=== PATIENT | female | born 1965 | race Caucasian/White ===

== ENCOUNTER 2021-02-11 14:08 | Emergency (ER) | payer OTHER, SELFPAY ==
[2021-02-11 14:13] VITALS: BP 133/85; PULSE 71; RESP 18; TEMP 36.6; O2SAT 97; BMI 25.2
[2021-02-11 15:06] VITALS: BP 101/49; PULSE 71; RESP 18; O2SAT 95
[2021-02-11 15:28] VITALS: BP 125/77; PULSE 73; RESP 16; TEMP 36.8; O2SAT 98
--- NOTE | 2021-02-11 15:49 | PC.PHAR ---
PT STATES SHE TAKES CARE OF HER OWN MEDICATIONS-PT STATES SHE HASNT TAKEN AMITRIPTYLINE IN ABOUT 2 WEEKS-PT STATES THE PHARMACY TOLD HER NOT TO TAKE WITH PROZAC BECAUSE OF THE SEROTONIN REACTION
--- NOTE | 2021-02-11 15:57 | W.ED.HA ---
HPI - Headache General: Chief Complaint: Headache Stated Complaint: H/A PROGRESSIVELY GETTING WORSE:SENT BY PCP Time Seen by Provider: 02/11/21 15:31 History of Present Illness: HPI Narrative: 55-year-old female presents emergency room with complaint of headaches progressively worsening over the last several days. She was seen last week by her chiropractor on 2 different occasions and had adjustments that did not help. She is coming bilateral temporal pain as well as occipital pain. She has had some vomiting a couple of days ago. There is no head trauma she is not on any anticoagulants. MD elicited complaint: headache Onset (ago): week(s) Onset description: gradually Location: temporal, occipital and band-like Severity: severe Quality & Timing: squeezing and constant Exacerbating factors: none Relieving factors: nothing Associated symptoms: Deny chest pain, confusion, cough, diaphoresis, eye pain, eye redness, fever(s), lightheadedness, loss of vision, malaise, nausea, neck stiffness, numbness, paresthesias, photophobia, pre-syncope, rash, seizures, short of breath, sound sensitivity, syncope, vomiting or weakness Treatments prior to arrival: none Review of Systems Const: Denies: fever(s), malaise or diaphoresis ENMT: Denies: throat pain, ear or mastoid pain, nasal discharge or nasal congestion Card: Denies: chest pain, lightheadedness, syncope or pre-syncope Resp: Denies: dyspnea, productive cough or non-productive cough GI: Denies: nausea or vomiting : Denies: flank pain, difficulty voiding, dysuria, urinary frequency or urinary urgency Skin/Breast: Denies: rash Neuro: Denies: confusion PFSH ED PFSH: Medical History Constipation DONAL (generalized anxiety disorder) Hypertension Meniere disease New onset of headaches after age 52 Surgical History H/O arthroscopic knee surgery H/O lithotripsy H/O: hysterectomy History of carpal tunnel surgery S/P appendectomy S/P cholecystectomy Family History Sister Cancer Family/Other CAD (coronary artery disease) Denies family history of Diabetes Social History Smoking and tobacco status: never smoked Alcohol intake: current Alcohol intake frequency: holidays/special occasions only Female Reproductive History: Spontaneous abortions: No Physical Exam Const: COMMON NORMALS: no acute distress GENERAL APPEARANCE: cooperative and comfortable ORIENTATION/CONSCIOUSNESS: Yes awake, Yes oriented to person, Yes oriented to place and Yes oriented to time HENMT: COMMON NORMALS: normocephalic, atraumatic and hearing grossly normal bilaterally HEAD & SCALP: normocephalic and atraumatic Eye: DIRECT OPHTHALMOSCOPY: No photophobia Neck/C-Spine: COMMON NORMALS: no JVD Resp: COMMON NORMALS: normal respiratory effort, No retractions, No use of accessory muscles and clear to auscultation bilaterally AUSCULTATION: clear to auscultation bilaterally Cardio: COMMON NORMALS: no JVD, regular rate, regular rhythm and No murmurs present (Cardio) RATE: regular rate RHYTHM: regular rhythm GI: COMMON NORMALS: Soft to palpation and No hepatosplenomegaly present AUSCULTATION: Yes normoactive bowel sounds PALPATION: Yes Soft to palpation, No Tenderness to palpation present (GI), No Guarding due to palpation present (GI) and Yes No hepatosplenomegaly present Extremity: COMMON NORMALS: normal to inspection, capillary refill normal, no clubbing, cyanosis or edema, no calf tenderness and no pedal edema Neuro: SENSORIUM/ORIENTATION: Yes oriented to person, Yes oriented to place and Yes oriented to time Skin: COMMON NORMALS: no rashes or lesions noted GENERAL SKIN EXAM: no rashes or lesions noted Course Vital Signs: Vital signs: Vital Signs Temperature 98.3 F 02/11/21 15:28 Pulse Rate 74 02/11/21 20:14 Respiratory Rate 18 02/11/21 20:14 Blood Pressure 138/73 02/11/21 20:14 Pulse Oximetry 100 02/11/21 20:14 MDM - Headache MDM Narrative: Medical decision making narrative: Labs reviewed on the chart. Neurologically patient fully intact no focal neurologic deficits noted. There is no trauma she is not on any blood thinners. Headache has improved with medications. She describes a tension-like migraine with bilateral frontal symptoms. We will go ahead and discharge her home scheduled for an outpatient MRI. Discharge home [facility] needed along with ibuprofen or Tylenol and follow-up with primary care with results of the MRI return if has further problems. Lab Data: Labs: Lab Results 02/11/21 02/11/21 15:52 15:52 WBC 4.5 10^3/uL 10^3/ uL (4.0-10.0) RBC 4.96 10^6/uL 10^6 /uL (4.1-5.3) Hgb 14.8 g/dL g/dL (11.5-15.3) Hct 42.3 % % (37.0-47.0) MCV 85.3 fl fl (81-99) MCH 29.8 pg pg (28.0-34.0) MCHC 35.0 g/dL g/dL (30.0-36.0) RDW 11.7 % L % (12.1-15.1) Plt Count 237 10^3/cmm 10^3 /cmm (130-400) MPV 9.9 fL fL (7.4-10.4) Neut % (Auto) 64.0 % % Lymph % (Auto) 23.5 % % [place] % (Auto) 8.9 % % Eos % (Auto) 2.7 % % Baso % (Auto) 0.9 % % Neut # (Auto) 2.86 10^3/uL 10^3 /uL (1.8-7.7) Lymph # (Auto) 1.1 10^3/uL 10^3/ uL (0.8-4.8) [place] # (Auto) 0.4 10^3/uL 10^3/ uL (0.2-0.9) Eos # (Auto) 0.1 10^3/uL 10^3/ uL (0.0-0.8) Baso # (Auto) 0.0 10^3/uL 10^3/ uL (0.0-0.1) Nucleated RBC % (a uto) 0 % % Nucleated RBCs # 0.0 /100WBC /100W BC Sodium 140 mmol/L mmol/L (136-145) Potassium 3.4 mmol/L L mmol /L (3.5-5.1) Chloride 105 mmol/L mmol/L (98-107) Carbon Dioxide 25 mmol/L mmol/L (22-29) Anion Gap 13.4 (5-19) BUN 13 mg/dL mg/dL (6-20) Creatinine 0.5 mg/dL mg/dL (0.5-0.9) GFR Calculation 129.1 mL/min mL/m in (90-130) Glucose 117 mg/dL H mg/dL (65-115) Calculated Osmolal ity 291 mOsm/kg mOsm/ kg (285-295) Calcium 9.2 mg/dL mg/dL (8.5-10.5) Total Bilirubin 0.2 mg/dL mg/dL (0.15-1.2) AST 18 U/L U/L (0-32) ALT 37 U/L H U/L (0-33) Alkaline Phosphata se 67 IU/L IU/L (35-105) Total Protein 7.1 g/dL g/dL (6.6-8.7) Albumin 4.2 g/dL g/dL (3.5-5.2) Globulin 2.9 g/dL g/dL (1.3-4.6) Discharge Plan Discharge Patient Disposition: Home Clinical Impression: Headache Condition: Stable Prescriptions: New promethazine 25 mg tablet 25 mg PO Q6H PRN (Reason: headache) Qty: 20 RF: 0 No Action buspirone 5 mg tablet 10 mg PO BID PRN (Reason: anxiety) Qty: 30 RF: 2 Linzess 72 mcg capsule 72 mcg PO QAM 90 Days Qty: 90 RF: 3 rizatriptan [Maxalt] 10 mg tablet 10 mg PO Q2H PRN (Reason: migraine headache) Qty: 10 RF: 2 amitriptyline 25 mg tablet 25 mg PO BEDTIME RF: 0 Adult Multivitamin Gummies 200 mcg Tablet,Chewable 3 tab PO DAILY RF: 0 Advil Dual Action 125-250 mg Tablet 2 - 3 tab PO PRN RF: 0 meloxicam 15 mg tablet 15 mg PO DAILY PRN (Reason: Pain) RF: 0 fluoxetine 20 mg capsule 20 mg PO QAM RF: 0 Benicar HCT 40-25 mg tablet 1 tab PO QAM RF: 0 metoprolol tartrate 25 mg tablet 25 mg PO DAILY PRN (Reason: heart rate) RF: 0 Discharge Orders: Discharge ED (Routine); Ordered 02/11/21 Ordered By: Priyank Potter Referrals: Sahra Maki MD [Primary Care Provider] - Discharge Diet: Usual diet Discharge Activity: Limit activity as instructed Patient Instructions: Opioid Safety Activity Restrictions/Additional Instructions: Avoid stimulants and stressful activities. Case management will call to make arrangements for you to have a MRI of the head. Coding Level of Care Code ED [employer]man for Chg Fwd Exam Comprehensive
[2021-02-11 16:15] LABS: Basophils % 0.9 %; Eosinophils # 0.1 10^3/uL (0.0-0.8); Eosinophils % 2.7 %; Hematocrit 42.3 % (37.0-47.0); Hemoglobin 14.8 g/dL (11.5-15.3); Lymphocytes # 1.1 10^3/uL (0.8-4.8); Lymphocytes % 23.5 %; Mean Corpuscular Hemoglobin 29.8 pg (28.0-34.0); Mean Corpuscular Volume 85.3 fl (81-99); Mean Platelet Volume 9.9 fL (7.4-10.4); Monocytes # 0.4 10^3/uL (0.2-0.9); Monocytes % 8.9 %; Neutrophils # 2.86 10^3/uL (1.8-7.7); Nucleated Red Blood Cells % 0 %; Platelet Count 237 10^3/cmm (130-400); Red Blood Count 4.96 10^6/uL (4.1-5.3); Red Cell Distribution Width 11.7 % (12.1-15.1); White Blood Count 4.5 10^3/uL (4.0-10.0)
[2021-02-11] MEDS: diphenhydrAMINE 50 mg/mL SDV 1mL IVP (16:19)
[2021-02-11] MEDS: ketorolac 30 mg/mL INJ IVP (16:20)
[2021-02-11] MEDS: sodium chloride 0.9% 1,000 ML 999 ML IV (16:20)
[2021-02-11 16:46] LABS: Alanine Aminotransferase 37 U/L (0-33); Albumin Level 4.2 g/dL (3.5-5.2); Alkaline Phosphatase 67 IU/L (35-105); Anion Gap 13.4 (5-19); Aspartate Amino Transferase 18 U/L (0-32); Blood Urea Nitrogen 13 mg/dL (6-20); Calcium 9.2 mg/dL (8.5-10.5); Carbon Dioxide 25 mmol/L (22-29); Chloride 105 mmol/L (98-107); Globulin 2.9 g/dL (1.3-4.6); Glomerular Filtration Rate 129.1 mL/min (90-130); Glucose 117 mg/dL (65-115); Osmolality Calculated 291 mOsm/kg (285-295); Potassium 3.4 mmol/L (3.5-5.1); Sodium 140 mmol/L (136-145); Total Bilirubin 0.2 mg/dL (0.15-1.2); Total Protein 7.1 g/dL (6.6-8.7)
[2021-02-11] MEDS: LORazepam 2 mg/mL INJ 1 mL 1 MG IVP (18:36)
[2021-02-11] MEDS: dihydroergotamine 1 mg/mL Inj IVP (18:36)
[2021-02-11] MEDS: sodium chloride 0.9% (100 ml) 100 ML (18:37)
[2021-02-11] MEDS: valproic acid inj 500 MG in sodium chloride 0.9% 50 ML 55 MG IV (18:37)
[2021-02-11 20:14] VITALS: BP 138/73; PULSE 74; RESP 18; O2SAT 100
--- NOTE | 2021-02-12 12:48 | DCPLANNER ---
manager highway had message to schedule a follow up appointment for patient for an outpatient MRI. manager highway faxed signed order to centralized scheduling, who will call patient with appointment information.
--- NOTE | 2021-03-07 14:40 | DCPLANNER ---
Patient had an MRI scheduled - appointment was cancelled by patient.
== END 2021-02-11 20:17 | disposition home or self-care (01) ==
PROVIDERS: Emergency Provider Family Medicine; PCP Family Medicine
DX: R51.9 Headache, unspecified (principal); I10 Essential (primary) hypertension
CPT/HCPCS: 80053; 85025; 96365; 96366; 96375; 99284; J1110; J1200; J1885; J2060; J7030

== ENCOUNTER → 2021-07-22 15:26 | Outpatient (BNVA) | payer OTHER, SELFPAY | PROVIDERS: PCP Family Medicine; Visit Provider Family Medicine | DX: R53.83 Other fatigue (principal); R63.5 Abnormal weight gain; I10 Essential (primary) hypertension; N95.1 Menopausal and female climacteric states | CPT/HCPCS: 80053; 83001; 83002; 84443; 85025 ==

== ENCOUNTER → 2021-09-05 17:13 | Outpatient (BNVA) | payer OTHER, SELFPAY | PROVIDERS: PCP Family Medicine; Visit Provider Emergency Medicine | DX: M25.561 Pain in right knee (principal) | CPT/HCPCS: 73562 ==

== ENCOUNTER → 2022-07-31 10:48 | Outpatient (BNVA) | payer BC, SELFPAY | PROVIDERS: PCP Family Medicine; Visit Provider Family Medicine | DX: K59.00 Constipation, unspecified (principal); I10 Essential (primary) hypertension; R63.5 Abnormal weight gain; G43.909 Migraine, unspecified, not intractable, without status migrainosus; R41.3 Other amnesia; G43.009 Migraine without aura, not intractable, without status migrainosus; F41.1 Generalized anxiety disorder; M19.90 Unspecified osteoarthritis, unspecified site; K59.04 Chronic idiopathic constipation | CPT/HCPCS: 80053; 84443; 85025; 85651; 86140 ==

== ENCOUNTER → 2022-09-04 09:55 | Outpatient (BNVA) | payer BC, SELFPAY | PROVIDERS: PCP Family Medicine; Referring Provider Family Medicine; Visit Provider Psychiatry & Neurology Neurology | DX: G43.909 Migraine, unspecified, not intractable, without status migrainosus (principal); G45.4 Transient global amnesia; R20.2 Paresthesia of skin | CPT/HCPCS: 81241; 82306; 82607; 83090; 83735; 83921; 85210; 85300; 85303; 85306; 85613; 85730; 86146; 86147; 86160; 86162; 86235; 86255; 86376; 86431; 86617; 86780 ==

== ENCOUNTER 2022-09-18 06:17 | Outpatient (CLI) | payer BC, SELFPAY ==
--- NOTE | 2022-09-18 06:30 | USCV_ITS ---
Ave Cabello Age: 57 Gender: F : 1965 Exam Date: 09/18/2022 06:30 Ordering Phys: Nik Bernabe MD Technologist: JOSE Exam Location: [facility] – [place] Indication: MIGRAINE Risk Factors: Previous Vascular Surgery: Right Brachial BP: / Left Brachial BP: / Right Left Velocity (cm/s) Spectral Plaque Velocity (cm/s) Spectral Plaque Syst/Diast Broadening Syst/Diast Broadening 71.50/ 23.30 Prox CCA 83.10 / 23.30 66.10/ 21.80 Mid CCA 76.50 / 25.70 67.70/ 20.00 Distal CCA 67.80 / 23.90 56.90/ 16.30 Prox ICA 50.30 / 23.70 49.60/ 17.20 Mid ICA 81.60 / 34.20 56.70/ 28.10 Distal ICA 67.20 / 31.90 82.60 ECA 61.30 0.80 ICA/CCA 0.98 Antegrade Vertebral Antegrade 32.00/ 12.30 cm/s 51.30/ 22.50 cm/s Tri Subclavian Tri 75.40 64.60 CONCLUSIONS Right ICA stenosis <50%. Left ICA stenosis <50%. Normal antegrade Doppler flow noted in the right vertebral artery. Normal antegrade Doppler flow noted in the left vertebral artery. Mike Peoples MD (Electronically Signed) Final Date: 18 Sep 2022 17:37 S
== END 2022-09-18 06:18 | disposition home or self-care (01) ==
LOC: RAD 06:18
PROVIDERS: PCP Family Medicine; Visit Provider Psychiatry & Neurology Neurology
DX: G43.909 Migraine, unspecified, not intractable, without status migrainosus (principal)
CPT/HCPCS: 81241; 82306; 82607; 83090; 83735; 83921; 85210; 85300; 85303; 85306; 85613; 85730; 86146; 86147; 86160; 86162; 86235; 86255; 86376; 86431; 86617; 93880

== ENCOUNTER 2024-06-06 09:13 | Emergency (ER) | payer BC, SELFPAY ==
[2024-06-06 09:32] VITALS: BP 136/83; PULSE 61; TEMP 36.6; O2SAT 100
[2024-06-06 09:59] LABS: Basophils % 0.6 %; Eosinophils # 0.1 10^3/uL (0.0-0.8); Eosinophils % 1.1 %; Hematocrit 42.3 % (36-47); Lymphocytes # 1.1 10^3/uL (0.8-4.8); Lymphocytes % 16.2 %; Mean Corpuscular HGB Conc 34.3 g/dL (30-55); Mean Corpuscular Hemoglobin 29.5 pg (27-33); Monocytes # 0.4 10^3/uL (0.2-0.9); Monocytes % 6.1 %; Neutrophils # 5.34 10^3/uL (1.8-7.7); Neutrophils % 75.9 %; Nucleated Red Blood Cells % 0 %; Platelet Count 190 10^3/cmm (157-399); Red Blood Count 4.92 10^6/uL (3.85-5.65); Red Cell Distribution Width 12.5 % (12.1-15.1); White Blood Count 7.04 10^3/uL (3.29-11.43)
[2024-06-06 10:24] LABS: Alanine Aminotransferase 33 U/L (0-33); Albumin Level 4.5 g/dL (3.5-5.2); Alkaline Phosphatase 77 U/L (35-105); Anion Gap 17.8 (5-19); Aspartate Amino Transferase 20 U/L (0-32); Blood Urea Nitrogen 20 mg/dL (6-20); Calcium 9.5 mg/dL (8.5-10.5); Carbon Dioxide 25 mmol/L (22-29); Chloride 100 mmol/L (98-107); Creatinine Clr Calc Pharmacy 63.3874; Globulin 2.7 g/dL (1.3-4.6); Glomerular Filtration Rate 64.5 mL/min (90-130); Glucose 156 mg/dL (65-115); Osmolality Calculated 294 mOsm/kg (285-295); Potassium 3.8 mmol/L (3.5-5.1); Sodium 139 mmol/L (136-145); Total Bilirubin 0.5 mg/dL (0.15-1.2); Total Protein 7.2 g/dL (6.6-8.7)
[2024-06-06 10:40] LABS: Bilirubin Urine Negative (Negative); Blood Urine 1+ (Negative); Glucose Urine UA Negative (Normal); Ketones Urine 1+ (Negative); Leukocyte Esterase Urine Negative (Negative); Nitrate Urine Negative (Negative); Protein Urine Negative (Negative); Specific Gravity, Urine 1.021 (1.005-1.030); Urine Appearance Clear (CLEAR); Urine Color Yellow (Yellow); Urobilinogen Urine 0.2 mg/dL (Negative)
[2024-06-06 10:42] LABS: Add Urine Microscopic? YES; Bacteria Urine None Seen /hpf; Hyaline Casts Urine 7.85 /lpf
[2024-06-06 11:35] VITALS: BP 123/74; PULSE 71; O2SAT 98
--- NOTE | 2024-06-06 11:36 | ED_ITS ---
HPI - Female Genitourinary 2 General: Chief complaint: Urogenital-Female Stated complaint: low back pain possible kidney stones per pt Time Seen by Provider: 06/06/24 11:36 History of Present Illness: 59-year-old female presents emergency ro om complaining of left flank pain that began this morning wraps up into her abdomen. She has a little bit of dysuria frequency. No hematuria she has a history of renal stones states this feels like stone she has had in the past. Associated symptoms: Deny abdominal pain Related Data Home Medications ?Medication ?Instructions ?Recorded ?Confirmed multivitamin with minerals-folic 3 tab PO DAILY 06/06/24 acid 200 mcg chewable tablet (Adult Multivitamin Gummies) metoprolol tartrate 25 mg tablet 25 mg PO DAILY PRN he art rate 06/06/24 06/06/24 tirzepatide 12.5 mg/0.5 mL 12.5 mg SUBCUT Q7D 06/06/24 06/06/24 subcutaneous pen injector (Vidal) Previous Rx's ?Medication ?Instructions ?Recorded olmesartan 40 1 tab PO QAM 90 days #90 tab s 07/31/22 mg-hydrochlorothiazide 25 mg tablet (Benicar HCT) eletriptan 20 mg tablet (Relpax) 20 mg PO Q2H PRN migr zoila headache 09/04/22 #30 tabs ciprofloxacin HCl 500 mg tablet 500 mg PO BID #14 tabs 06/06/24 (Cipro) hydrocodone 5 mg-acetaminophen 325 1 tab PO Q6H PRN pa in #10 tabs 06/06/24 mg tablet Allergies Allergy/AdvReac Type Severity Reaction Status Date / Time codeine AdvReac Mild ADR-VOMITIN Verified 06/06/24 09:36 G erythromycin base AdvReac Mild ADR-LETHARG Verified 06/06/24 09:36 IC morphine AdvReac ADR-ANXIETY Verified 06/06/24 09:36 Review of Systems 2 Const: Denies: fever(s) or chills Card: Denies: chest pain Resp: Denies: dyspnea GI: Denies: abdominal pain : Reports: flank pain (Right); Denies: dysuria, urinary frequency or urinary urgency Musc: Denies: neck pain or back pain Skin/Breast: Denies: rash PFSH ED 2 PFSH: Medical History Constipation DONAL (generalized anxiety disorder) Hypertension Memory deficit Meniere disease New onset of headaches after age 52 Surgical History H/O arthroscopic knee surgery H/O lithotripsy H/O: hysterectomy History of carpal tunnel surgery S/P appendectomy S/P cholecystectomy Family History Sister Cancer Family/Other CAD (coronary artery disease) Denies family history of Diabetes Social History Smoking and tobacco/nicotine status: never used tobacco/nicotine Alcohol intake: current Alcohol intake frequency: holidays/special occasions only Substance/Drug Use: never Female Reproductive History: Spontaneous abortions: No Physical Exam 2 Const: COMMON NORMALS: no acute distress GENERAL APPEARANCE: cooperative and comfortable ORIENTATION/CONSCIOUSNESS: Yes awake, Yes oriented to person, Yes oriented to place and Yes oriented to time HENMT: COMMON NORMALS: normocephalic, atraumatic and hearing grossly normal bilaterally HEAD & SCALP: normocephalic and atraumatic Resp: COMMON NORMALS: normal respiratory effort, No retractions, No use of accessory muscles and clear to auscultation bilaterally AUSCULTATION: clear to auscultation bilaterally Cardio: COMMON NORMALS: regular rate, regular rhythm and No murmurs present (Cardio) RATE: regular rate RHYTHM: regular rhythm GI: COMMON NORMALS: Soft to palpation and No hepatosplenomegaly present A USCULTATION: Yes normoactive bowel sounds PALPATION: Yes Soft to palpation, No Tenderness to palpation present (GI), No Guarding due to palpation present (GI) and Yes No hepatosplenomegaly present : BLADDER/KIDNEY EXAM: Yes CVA tenderness Back/Pelvis: GENERAL BACK: Yes CVA tenderness CVA tenderness: right Extremity: COMMON NORMALS: normal to inspection, capillary refill normal, no clubbing, cyanosis or edema, no calf tenderness and no pedal edema Neuro: SENSORIUM/ORIENTATION: Yes oriented to person, Yes oriented to place and Yes oriented to time Skin: COMMON NORMALS: no rashes or lesions noted GENERAL SKIN EXAM: no rashes or lesions noted Course 2 Vital Signs: Vital signs: Vital Signs Temperature 97.8 F 06/06/24 09:32 Pulse Rate 76 06/06/24 13:03 Blood Pressure 109/75 06/06/24 13:03 Pulse Oximetry 96 06/06/24 13:03 Oxygen Delivery Me thod Room Air 06/06/24 12:34 MDM - Female Medical Decision Making No signs of nephrolithiasis on the CT. Patient does have some perinephric stranding suggestive of pyelourine shows white blood cells but there is some squamous cells involved as well no leukocytosis. Will start on Cipro 500 Clem hydrocodone for the flank pain however follow-up as needed. Medical Records I reviewed the patient's medical records. Lab Data I reviewed the patient's lab results. 06/06/24 09:51 06/06/24 09:51 Radiology Impressions Abdomen/Pelvis CT 06/06/24 11:37 IMPRESSION: 1. Inflammatory stranding and induration about the RIGHT renal pelvis with RIGHT ureterectasis. No visualized obstructing renal or ureteral calculi. Recommend correlation for RIGHT pyelonephritis and recently passed calculus. 2. Prior appendectomy. 3. Mild hepatomegaly with diffuse fatty infiltration of the liver. 4. No other acute findings. 5. Prior cholecystectomy. Laboratory Results WBC 7.04 10^3/uL (3.29-11.43) 06/06/24 09:51 RBC 4.92 10^6/uL (3.85-5.65) 06/06/24 09:51 Hgb 14.50 g/dL (11.27-16.99) 06/06/24 09:51 Hct 42.3 % (36-47) 06/06/24 09:51 MCV 86.0 fl (85-98) 06/06/24 09:51 MCH 29.5 pg (27-33) 06/06/24 09:51 MCHC 34.3 g/dL (30-55) 06/06/24 09:51 RDW 12.5 % (12.1-15.1) 06/06/24 09:51 Plt Count 190 10^3/cmm (157-399) 06/06/24 09:51 MPV 10.0 fL (7.4-10.4) 06/06/24 09:51 Neut % (Auto) 75.9 % 06/06/24 09:51 Lymph % (Auto) 16.2 % 06/06/24 09:51 [place] % (Auto) 6.1 % 06/06/24 09:51 Eos % (Auto) 1.1 % 06/06/24 09:51 Baso % (Auto) 0.6 % 06/06/24 09:51 Neut # (Auto) 5.34 10^3/uL (1.8-7.7) 06/06/24 09:51 Lymph # (Auto) 1.1 10^3/uL (0.8-4.8) 06/06/24 09:51 [place] # (Auto) 0.4 10^3/uL (0.2-0.9) 06/06/24 09:51 Eos # (Auto) 0.1 10^3/uL (0.0-0.8) 06/06/24 09:51 Baso # (Auto) 0.0 10^3/uL (0.0-0.1) 06/06/24 09:51 Nucleated RBC % (auto) 0 % 06/06/24 09:51 Nucleated RBCs # 0.0 /100WBC 06/06/24 09:51 Sodium 139 mmol/L (136-145) 06/06/24 09:51 Potassium 3.8 mmol/L (3.5-5.1) 06/06/24 09:51 Chloride 100 mmol/L (98-107) 06/06/24 09:51 Carbon Dioxide 25 mmol/L (22-29) 06/06/24 09:51 Anion Gap 17.8 (5-19) 06/06/24 09:51 BUN 20 mg/dL (6-20) 06/06/24 09:51 Creatinine 0.9 mg/dL (0.5-0.9) 06/06/24 09:51 GFR Calculation 64.5 mL/min (90-130) L 06/06/24 09:51 Glucose 156 mg/dL (65-115) H 06/06/24 09:51 Calculated Osmolality 294 mOsm/kg (285-295) 06/06/24 09:51 Calcium 9.5 mg/dL (8.5-10.5) 06/06/24 09:51 Total Bilirubin 0.5 mg/dL (0.15-1.2) 06/06/24 09:51 AST 20 U/L (0-32) 06/06/24 09:51 ALT 33 U/L (0-33) 06/06/24 09:51 Alkaline Phosphatase 77 U/L (35-105) 06/06/24 09:51 Total Protein 7.2 g/dL (6.6-8.7) 06/06/24 09:51 Albumin 4.5 g/dL (3.5-5.2) 06/06/24 09:51 Globulin 2.7 g/dL (1.3-4.6) 06/06/24 09:51 Urine Color Yellow (Yellow) 06/06/24 10:30 Urine Appearance Clear (CLEAR) 06/06/24 10:30 Urine pH 5.0 (5-7) 06/06/24 10:30 Ur Specific [place] 1.021 (1.005-1.030) 06/06/24 10:30 Urine Protein Negative (Negative) 06/06/24 10:30 Urine Glucose (UA) Negative (Normal) 06/06/24 10:30 Urine Ketones 1+ (Negative) H 06/06/24 10:30 Urine Blood 1+ (Negative) A 06/06/24 10:30 Urine Nitrate Negative (Negative) 06/06/24 10:30 Urine Bilirubin Negative (Negative) 06/06/24 10:30 Urine Urobilinogen 0.2 mg/dL (Negative) 06/06/24 10:30 Ur Leukocyte Esterase Negative (Negative) 06/06/24 10:30 Urine RBC 3-5 /hpf (0-2) 06/06/24 10:30 Urine WBC 11-20 /hpf (0-5) H 06/06/24 10:30 Ur Squamous Epith Cells 6-10 /hpf (0-5) 06/06/24 10:30 Amorphous Sediment Not Reportable 06/06/24 10:30 Urine Bacteria None seen /hpf (NONE) 06/06/24 10:30 Hyaline Casts 7.85 /lpf 06/06/24 10:30 All radiology interpretation(s) finalized by discharge Discharge Plan Discharge Patient Disposition: Home Clinical Impression: Pyelonephritis, Cystitis Condition: Stable Prescriptions: New ciprofloxacin HCl [Cipro] 500 mg tablet 500 mg PO BID Qty: 14 0RF hydrocodone-acetaminophen 5-325 mg tablet 1 tab PO Q6H PRN (Reason: pain) Qty: 10 0RF No Action Benicar HCT 40-25 mg tablet 1 tab PO QAM 90 Days Qty: 90 1RF eletriptan [Relpax] 20 mg tablet 20 mg PO Q2H PRN (Reason: migraine headache) Qty: 30 3RF Rx Instructions: do not exceed 2 doses per 24 hrs multivit with min-folic acid [Adult Multivitamin Gummies] 200 mcg Tablet,Chewable 3 tab PO DAILY Mounjaro 12.5 mg/0.5 mL pen injector 12.5 mg SUBCUT Q7D metoprolol tartrate 25 mg tablet 25 mg PO DAILY PRN (Reason: heart rate) Discharge Orders: Discharge ED (Routine); Ordered 06/06/24 Ordered By: Priyank Potter Discharge Diet: Usual diet Discharge Activity: Increase activity as tolerated Patient Instructions: Urinary Tract Infection in Women (ED), Opioid Safety, Pain Management Activity Restrictions/Additional Instructions: Thank you for choosing [facility] for your healthcare needs today. It is very important that you follow up as instructed or that you return to the Emergency Department should you have concerns or if your condition changes or worsens in any way. You were seen in the emergency room for right flank pain. Urine showed signs of infection but there is no sign of a kidney stone at this time. The inflammation in the ureter and around the kidney are likely what are causing your flank pain symptoms. Recommend he start on Cipro 500 mg 1 pill twice a day for 7 days additionally you are given pain medications increase fluid intake. Print Language: British Coding Level of Care Code ED [employer] Sales Representative for Silvia Maravilla
--- NOTE | 2024-06-06 11:37 | CT_ITS ---
WS: [id number] CT ABDOMEN PELVIS TECHNIQUE: Noncontrast CT of the abdomen and pelvis with coronal and sagittal reformatted images. CLINICAL INFORMATION: flank pain COMPARISON: None. DLP: 397.[address] scans at [facility] [place] use at least one of these dose optimization techniques: automated exposure control; mA and/or kV adjustment per patient size (includes targeted exams where dose is matched to clinical indication); or iterative reconstruction. FINDINGS: Diffuse fatty infiltration of the liver. Cholecystectomy clips. Mild hepatomegaly. Normal GE junction. Normal spleen. Normal noncontrast pancreas. Lung bases are well aerated. Inflammatory stranding and induration about the RIGHT kidney and renal pelvis. Mild ureterectasis RIGHT ureter. Distal RIGHT ureter is decompressed. Findings may be due to recently passed calculus. No obstructing LEFT renal or ureteral calculi. LEFT renal cyst. Small splenule. Prior appendectomy. A few sigmoid diverticuli. No evidence of acute diverticulitis. CT/CT kidney stone [id number] IMPRESSION: 1. Inflammatory stranding and induration about the RIGHT renal pelvis with RIG HT ureterectasis. No visualized obstructing renal or ureteral calculi. Recommen d correlation for RIGHT pyelonephritis and recently passed calculus. 2. Prior appendectomy. 3. Mild hepatomegaly with diffuse fatty infiltration of the liver. 4. No other acute findings. 5. Prior cholecystectomy.
--- NOTE | 2024-06-06 11:46 | PC.PHAR ---
Pt states only takes a multivitamin, Benicar-hctz 40-25, and Mounjaro 12.5/0.5, currently. Pt has several other medications on hold at [facility]. Relpax 20mg for migraines and Metoprolol tart. 25mg prn heart rate.
[2024-06-06 12:34] VITALS: BP 112/75; PULSE 78; O2SAT 95
[2024-06-06 13:03] VITALS: BP 109/75; PULSE 76; O2SAT 96
== END 2024-06-06 13:09 | disposition home or self-care (01) ==
PROVIDERS: Physician Assistant; Emergency Provider Family Medicine
DX: N12 Tubulo-interstitial nephritis, not specified as acute or chronic (principal); N30.90 Cystitis, unspecified without hematuria
CPT/HCPCS: 36415; 74176; 80053; 81001; 85025; 99284